=== PATIENT | female | born 2000 | race American Indian/Alaskan Native ===

== ENCOUNTER 2024-10-16 18:20 | Emergency (ER) | payer MEDICAID, SELFPAY ==
[2024-10-16 18:23] VITALS: PULSE 134; RESP 18; O2SAT 100; BMI 22.4
[2024-10-16 18:26] VITALS: BP 139/91; PULSE 130; RESP 18; TEMP 36.6; O2SAT 99
--- NOTE | 2024-10-16 18:54 | XR_ITS ---
Examination: Foot, right, 3 views Technique: AP, oblique, lateral views foot, 3 views Date and time of exam: October 16, 2024 1936 hours INDICATIONS: Injury to foot today, foot pain FINDINGS: Extensive opacities in the soft tissue plantar surface of foot and calcaneus Large soft tissue defect upper posterior ankle with 4 foreign bodies in the soft tissue, the largest 10 mm No fracture IMPRESSION: Extensive opacities in the soft tissue plantar surface of the foot and calcaneus that appear to be on or near the skin, clinical correlation advised Large laceration upper posterior ankle with at least 4 foreign bodies in the soft tissue
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
[2024-10-16] MEDS: cephALEXin 250 MG CAPSULE 500 MG PO (19:41)
[2024-10-16] MEDS: DIPHTH,PERTUSS(ACELL),TET VAC 0.5 ML SYR- ADULT IMi (19:42)
[2024-10-16 20:50] VITALS: BP 116/67; PULSE 80; RESP 16; TEMP 37; O2SAT 100
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
[2024-10-16] MEDS: LIDOCAINE HCL 1% 20 ML VIAL IM (22:27)
[2024-10-16 22:40] VITALS: BP 125/78; PULSE 66; RESP 15; O2SAT 100
== END 2024-10-16 23:01 | disposition home or self-care (01) ==
PROVIDERS: Emergency Provider Emergency Medicine
DX: S81.811A Laceration without foreign body, right lower leg, initial encounter (principal); S01.81XA Laceration without foreign body of other part of head, initial encounter; Z23 Encounter for immunization; W22.8XXA Striking against or struck by other objects, initial encounter
CPT/HCPCS: 12001; 73630; 90471; 90715; 99283; J3490; A9270

== ENCOUNTER 2024-10-18 19:37 | Emergency (ER) | payer OTHER, SELFPAY ==
[2024-10-18 19:37] VITALS: BMI 22.4
[2024-10-18 19:45] VITALS: BP 125/76; PULSE 98; RESP 18; TEMP 36.9; O2SAT 100
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
== END 2024-10-18 20:56 | disposition home or self-care (01) ==
PROVIDERS: Emergency Provider Emergency Medicine
DX: S81.811D Laceration without foreign body, right lower leg, subsequent encounter (principal); W22.8XXD Striking against or struck by other objects, subsequent encounter
CPT/HCPCS: 99282

== ENCOUNTER 2024-10-27 20:07 | Emergency (ER) | payer OTHER, SELFPAY ==
[2024-10-27 20:19] VITALS: BP 127/77; PULSE 89; RESP 20; TEMP 36.7; O2SAT 99
--- NOTE | 2024-10-27 20:28 | PD.EDWOUND ---
ED Wound/Laceration-RME/HPI General Chief Complaint: Wound Recheck / Suture Removal Stated Complaint: NEED STITCHES REMOVED TO RIGHT ANKLE Time Seen by Provider: 10/27/24 20:23 Arrival date/time: 10/27/24 20:07 24F with history of drug use presents to ED with suture removal for lacs from 10 days ago on R ankle area. Limitations: no limitations Related Data Previous Rx's ?Medication ?Instructions ?Recorded ibuprofen 800 mg tablet 800 mg PO Q8H PRN pain #30 tabs 10/16/24 Allergies Allergy/AdvReac Type Severity Reaction Status Date / Time No Known Allergies Allergy Verified 10/27/24 20:08 Review of Systems Review of Systems Systems Reviewed: All systems reviewed, normal except as documented Constitutional Constitutional: Reports system reviewed and no additional complaints, except as documented, Denies fever(s) and Denies headache(s) ENT Ears, Nose, Mouth, and Throat: Denies disequilibrium and Denies headache(s) Cardiovascular Cardiovascular: Reports system reviewed and no additional complaints, except as documented, Denies chest pain and Denies dyspnea Respiratory Respiratory: Reports system reviewed and no additional complaints, except as documented, Denies cough and Denies dyspnea Gastrointestinal Gastrointestinal: Reports system reviewed and no additional complaints, except as documented, Denies abdominal pain, Denies nausea and Denies vomiting Neurologic Neurologic: Reports system reviewed and no additional complaints, except as documented, Denies confusion, Denies disequilibrium and Denies headache(s) Psychiatric Psychiatric: Denies confusion Past Medical History Past Medical History NEUROLOGIC: Negative Neurological Disorders CARDIAC: Negative Cardiac Disorders or Congestive Heart Failure RESPIRATORY: Negative Chronic Obstructive Pulmonary Disease (COPD) GASTROINTESTINAL: Negative Gastrointestinal Disorders, Hepatitis or Colorectal Cancer GENITOURINARY: Negative Genitourinary Disorders, Renal Disease or Prostate Cancer REPRODUCTIVE: Positive Previous Pregnancies and Syphilis (arpil 2021, treat october 2021.); Negative Breast Cancer, Endometriosis, Pelvic Inflammatory Disease, Testicular Cancer or Uterine Prolapse MUSCULOSKELETAL: Negative Musculoskeletal Disorders or Bone Cancer ENT: Negative Cataracts or Blind ENDOCRINE: Negative Endocrine Disorders, Diabetes Mellitus Type 1 or Diabetes Mellitus Type 2 HEMATOLOGIC: Negative Blood Disorders OTHER HISTORY: Negative Hospitalization, Autoimmune Disease, Down Syndrome, Developmental Delay, Shingles, Falls, Blood Transfusions, Blood Transfusion Reaction, Anesthesia Reactions, Organ Transplant, Chemotherapy, Radiation Therapy, Hyperbaric Therapy, MRSA, VRSA, Vancomycin-Resistant Enterococci, Human Immunodeficiency Virus (HIV), Chicken Pox, Measles, Mumps, Rubella (Taj[place] Measles), Clostridium Difficile, Cancer, Breast Cancer, Cervical Cancer, Colorectal Cancer, Lung Cancer, Ovarian Cancer, Prostate Cancer or Testicular Cancer Family History FAMILY HISTORY: Negative Family Psychiatric Problems, Family Respiratory Disorders, Family Cardiac Disorders, Family Gastrointestinal Problems, Family Cancer, Family Surgery or Family Anesthesia Reaction Surgical History SURGICAL: Negative Endocrine Surgery, Ear Surgery, Abdominal Surgery, Nephrectomy, Joint Replacement, Neurologic Surgery, Section or Organ Transplant Social History SMOKING STATUS: Current some day smoker SECOND HAND EXPOSURE: Yes (fob smokes around mother.) ED Exam General Limitations: Present no limitations General appearance: Present alert and in no apparent distress Head Head exam: Present atraumatic Eye Eye exam: Present normal appearance, PERRL and EOMI ENT ENT exam: Present normal exam, normal oropharynx and mucous membranes moist Neck Neck exam: Present normal inspection, full ROM and trachea midline Chest Chest inspection: Present normal inspection and symmetric chest wall rise Respiratory Respiratory exam: Present normal lung sounds bilaterally Cardiovascular Cardiovascular exam: Present regular rate, normal rhythm and normal heart sounds Abdominal Exam Abdominal exam: Present soft and normal bowel sounds Extremities Exam Extremities exam: Present full ROM Expanded Lower Extremity Exam Ankle exam: Present full ROM and laceration (healing lacs) Back Exam Back exam: Present normal inspection and full ROM Neurological Exam Neurological exam: Present alert, oriented X3 and CN II-XII intact Psychiatric Psychiatric exam: Present normal affect and normal mood Skin Skin exam: Present warm, dry, intact and normal color Course Quality Measures none Vital Signs Vital signs: Vital Signs Temperature 98.1 F 10/27/24 20:19 Pulse Rate 89 10/27/24 20:19 Respiratory Rate 20 10/27/24 20:19 Blood Pressure 127/77 10/27/24 20:19 Pulse Oximetry (%) 99 10/27/24 20:19 Oxygen Delivery Method Room Air 10/27/24 20:19 O2 at 99% on RA and WNLs Wound / Laceration MDM Narrative MDM Narrative:: 24F with history of drug use presents to ED with suture removal for lacs from 10 days ago on R ankle area. Physical exam reveals well-healing lacs on R ankle. There are a total of 2. No redness or tenderness around them. Patient is afebrile, alert, but anxious. 8 sutures removed. Patient data External records reviewed:: [facility] previous records Clinical information provided by:: patient Social determinants that could affect healthcare access:: substance use Patient has the following chronic illnesses:: drug use How is presenting disease/condition affected by chronic disease/condition?: exacerbated by Evaluation data The following diagnostics were reviewed and interpreted by me:: other (specify) (none) Lab and/or radiology exams considered but not ordered:: not ordered Interpretation Summary: n/a Medications / Prescriptions Medications or Prescriptions considered but not ordered:: not ordered Medication administrations:: n/a Consultations Consultation(s) initiated? (list below): No Diagnosis Wound Differential Diagnosis: laceration, abrasion, avulsion of skin and other (encounter for suture removal) Most likely diagnosis given after review of the tests above:: encounter for suture removal Admission Indicated Admission indicated?: not indicated Admission Request Was there a request for admission?: No Disposition Plan Disposition Plan: Discharge Discharge Attestation Discharge Attestation: The patient and all family members were given an opportunity to ask questions and understood the discharge instructions. Discharge instructions specifically effects, indications for sooner follow up or return to the emergency department, and the expected course of current diagnosis. Patient condition: Stable Discharge Plan Plan Patient Disposition: HOME (Self Care) Discharge Disposition comment: Stable Prescriptions/Referrals Prescriptions/Med Rec: No Action ibuprofen 800 mg tablet 800 mg PO Q8H PRN (Reason: pain) Qty: 30 0RF Problem List Clinical Impression: Encounter for removal of sutures Patient/Caregiver Discharge Instructions Education Materials: ED Stitches/Staple Removal No ... Additional Instructions: Please follow-up with PCP within 24-48 hours and return immediately if symptoms worsen. Print Language: Welsh Stand Alone Forms: Patient Portal Info Letter CHRISTINE/HOWARD Supervising Physician JOSE Supervising Physician: Dr. Mason
== END 2024-10-27 20:40 | disposition home or self-care (01) ==
LOC: SERX 20:34
PROVIDERS: Emergency Provider Emergency Medicine
DX: Z48.02 Encounter for removal of sutures (principal)
CPT/HCPCS: 99282

== ENCOUNTER 2024-12-19 14:35 | Emergency (ER) | payer OTHER, SELFPAY ==
[2024-12-19 14:36] VITALS: PULSE 80; RESP 16; O2SAT 98
[2024-12-19 14:40] VITALS: BP 105/68; PULSE 70; RESP 16; TEMP 37; O2SAT 99
[2024-12-19 15:31] VITALS: BP 117/77; PULSE 64; RESP 19; TEMP 37.2; O2SAT 98
--- NOTE | 2024-12-19 16:50 | PD.EDRME ---
Rapid Medical Screening Exam RME Arrival date/time: 12/19/24 14:35 This is a case of 24-year-old female with history of SYPHILIS in the past came in in the emergency room requesting for a syphilis test patient has recently had unprotected sex and wanted to be tested for syphilis patient denies any symptoms Chief Complaint: Urogenital-Female Time Seen by Provider: 12/19/24 14:42 Vital signs: Vital Signs Temperature 98.6 F 12/19/24 14:40 Pulse Rate 70 12/19/24 14:40 Respiratory Rate 16 12/19/24 14:40 Blood Pressure 105/68 12/19/24 14:40 Pulse Oximetry (%) 99 12/19/24 14:40 Oxygen Delivery Method Room Air 12/19/24 14:40
[2024-12-19 17:04] LABS: MHATP/TP-PA* See Sep Rpt; Syphilis Reactive (Nonreactive)
--- NOTE | 2024-12-19 17:22 | EDNOTE_ITS ---
ED Female Urogenital RME/HPI General Chief complaint: Urogenital-Female Stated complaint: THERE'S A BUBBLE ON MY LIP REQUEST STD SCREENING Time Seen by Provider: 12/19/24 14:42 Arrival date/time: 12/19/24 14:35 Limitations: no limitations RME / HPI RME / HPI Narrative: 12/19/24 14:35 This is a case of 24-year-old female with history of SYPHILIS in the past came in in the emergency room requesting for a syphilis test patient has recently had unprotected sex and wanted to be tested for syphilis patient denies any symptoms Related Data Previous Rx's ?Medication ?Instructions ?Recorded ibuprofen 800 mg tablet 800 mg PO Q8H PRN pain #30 t abs 10/16/24 Allergies Allergy/AdvReac Type Severity Reaction Status Date / Time No Known Allergies Allergy Verified 12/19/24 14:39 Review of Systems Review of Systems Systems Reviewed: All systems reviewed, normal except as documented Constitutional Constitutional: Reports system reviewed and no additional complaints, except as documented Cardiovascular Cardiovascular: Reports system reviewed and no additional complaints, except as documented and Reports as per HPI Respiratory Respiratory: Reports system reviewed and no additional complaints, except as documented and Reports as per HPI Gastrointestinal Gastrointestinal: Reports system reviewed and no additional complaints, except as documented and Reports as per HPI Musculoskeletal Musculoskeletal: Reports system reviewed and no additional complaints, except as documented and Reports as per HPI Neurologic Neurologic: Reports system reviewed and no additional complaints, except as documented and Reports as per HPI Past Medical History Past Medical History NEUROLOGIC: Negative Neurological Disorders CARDIAC: Negative Cardiac Disorders or Congestive Heart Failure RESPIRATORY: Negative Chronic Obstructive Pulmonary Disease (COPD) GASTROINTESTINAL: Negative Gastrointestinal Disorders, Hepatitis or Colorectal Cancer GENITOURINARY: Negative Genitourinary Disorders, Renal Disease or Prostate Cancer REPRODUCTIVE: Positive Previous Pregnancies and Syphilis (arpil 2021, treat october 2021.); Negative Breast Cancer, Endometriosis, Pelvic Inflammatory Disease, Testicular Cancer or Uterine Prolapse MUSCULOSKELETAL: Negative Musculoskeletal Disorders or Bone Cancer ENT: Negative Cataracts or Blind ENDOCRINE: Negative Endocrine Disorders, Diabetes Mellitus Type 1 or Diabetes Mellitus Type 2 HEMATOLOGIC: Negative Blood Disorders OTHER HISTORY: Negative Hospitalization, Autoimmune Disease, Down Syndrome, Developmental Delay, Shingles, Falls, Blood Transfusions, Blood Transfusion Reaction, Anesthesia Reactions, Organ Transplant, Chemotherapy, Radiation Therapy, Hyperbaric Therapy, MRSA, VRSA, Vancomycin-Resistant Enterococci, Human Immunodeficiency Virus (HIV), Chicken Pox, Measles, Mumps, Rubella ([place] Measles), Clostridium Difficile, Cancer, Breast Cancer, Cervical Cancer, Colorectal Cancer, Lung Cancer, Ovarian Cancer, Prostate Cancer or Testicular Cancer Family History FAMILY HISTORY: Negative Family Psychiatric Problems, Family Respiratory Disorders, Family Cardiac Disorders, Family Gastrointestinal Problems, Family Cancer, Family Surgery or Family Anesthesia Reaction Surgical History SURGICAL: Negative Endocrine Surgery, Ear Surgery, Abdominal Surgery, Nephrectomy, Joint Replacement, Neurologic Surgery, Section or Organ Transplant Social History SMOKING STATUS: Light (< 1 pack/day) SECOND HAND EXPOSURE: Yes (fob smokes around mother.) ED Exam General Limitations: Present no limitations General appearance: Present alert, in no apparent distress and other (Patient is awake alert oriented not in distress not toxic looking well-hydrated well- nourished) Head Head exam: Present atraumatic Eye Eye exam: Present normal appearance, PERRL and EOMI ENT ENT exam: Present normal exam, normal oropharynx and mucous membranes moist Neck Neck exam: Present normal inspection, full ROM and trachea midline Chest Chest inspection: Present normal inspection and symmetric chest wall rise Respiratory Respiratory exam: Present normal lung sounds bilaterally; Absent respiratory distress, wheezes, stridor, accessory muscle use or prolonged expiratory phase Cardiovascular Cardiovascular exam: Present regular rate, normal rhythm and normal heart sounds; Absent bradycardia, tachycardia, systolic murmur or diastolic murmur Abdominal Exam Abdominal exam: Present soft and normal bowel sounds; Absent distention, tenderness, guarding, rebound, rigidity, diminished bowel sounds, hyperactive bowel sounds, hypoactive bowel sounds, organomegaly, Soto's sign, Rovsing's sign or tenderness at McBurney's Point Extremities Exam Extremities exam: Present normal inspection and full ROM Back Exam Back exam: Present normal inspection and full ROM Neurological Exam Neurological exam: Present alert, oriented X3, CN II-XII intact, normal gait and reflexes normal; Absent motor sensory deficit Psychiatric Psychiatric exam: Present normal affect and normal mood Skin Skin exam: Present warm, dry, intact and normal color Course Quality Measures none Orders Category Date Time Status MHATP/TP-PA* Stat Lab 12/19/24 15:45 Received Syphilis Stat Lab 12/19/24 15:45 Completed PEN G ALFREDO (Bicillin LA) [Bicillin La Inj] Med 12/19/24 17:20 Once 2.4 mmu IM X1 ONE Vital Signs Vital signs: Vital Signs Temperature 98.6 F 12/19/24 14:40 Pulse Rate 70 12/19/24 14:40 Respiratory Rate 16 12/19/24 14:40 Blood Pressure 105/68 12/19/24 14:40 Pulse Oximetry (%) 99 12/19/24 14:40 Oxygen Delivery Method Room Air 12/19/24 14:40 Oxygen saturation is 99% in room air normal Urogenital - Female MDM Narrative MDM Narrative:: This is a case of 24-year-old female with history of SYPHILIS in the past came in in the emergency room requesting for a syphilis test patient has recently had unprotected sex and wanted to be tested for syphilis patient denies any symptoms physical examination patient is awake alert oriented not in distress nontoxic looking abdominal exam is benign nonsurgical no guarding no rebound no rigidity no tenderness the rest of the physical examination neurological exam is normal and unremarkable patient syphilis exam is positive reactive thus patient was given penicillin G 2.4 units per CDC protocol she was also advised to go to his primary care physician in December for an January 03 for his 2nd and 3rd dose of penicillin safe sex is advised for any worsening symptoms or any emergent concern return to the emergency room immediately or call 911 Patient was discharged with comfortable condition walking with stable gait. Patient verbalized no further complains explained diagnosis and answered patient question. Patient is comfortable with the proposed management plan including the need to follow up with his/her primary care physician and any specialist if applicable Discussed patient for any urgent condition or worsening sx, He/She needed to go to emergency room immediately or call 911. Patient acknowledge the responsibility to follow up as instructed and to monitor her/his symptoms. For any persistence of the symptoms for more than 3-5 days return precaution advised. Discussed the result of the test and was given printed discharge instruction Patient data External records reviewed:: [facility] previous records Clinical information provided by:: patient Social determinants that could affect healthcare access:: none Patient has the following chronic illnesses:: None How is presenting disease/condition affected by chronic disease/condition?: no chronic disease Evaluation data The following diagnostics were reviewed and interpreted by me:: lab results Lab and/or radiology exams considered but not ordered:: Reviewed Interpretation Summary: Reviewed Medications / Prescriptions Medications or Prescriptions considered but not ordered:: Given Medication administrations:: Medication Administration History Penicillin G Benzathine (Pen G Alfredo (Bicillin La) 1.2 Mmu/2 Ml Syrg) 2.4 mmu IM X1 ONE Stop: 12/19/24 17:21 Given Consultations Consultation(s) initiated? (list below): No Diagnosis Urogenital Female Differential Diagnosis: other (SYPHILLIS) Most likely diagnosis given after review of the tests above:: SYPHILLIS Admission Indicated Admission indicated?: not indicated Explain why admission is indicated or not indicated:: Not indicated Admission Request Was there a request for admission?: No Admission Attestation Admission request attestation: Not indicated Disposition Plan Disposition Plan: Discharge Discharge Attestation Discharge Attestation: The patient and all family members were given an opportunity to ask questions and understood the discharge instructions. Discharge instructions specifically effects, indications for sooner follow up or return to the emergency department, and the expected course of current diagnosis. Patient condition: Stable Discharge Plan Plan Patient Disposition: HOME (Self Care) Patient condition on transfer: Stable Prescriptions/Referrals Prescriptions/Med Rec: No Action ibuprofen 800 mg tablet 800 mg PO Q8H PRN (Reason: pain) Qty: 30 0RF Problem List Clinical Impression: Syphilis Patient/Caregiver Discharge Instructions Education Materials: Understanding STIs, Syphilis Additional Instructions: Follow-up with your primary care physician in 2 days for reevaluation it is very important to return to your primary care physician on December 27, 2024 and January 03, 2025 for your 2nd and 3rd penicillin injection for your syphilis for any symptoms or any emergent concern return to the emergency room immediately or call 911 safe sex is advised Print Language: Faroese Stand Alone Forms: Justina Award Info., Patient Portal Info Letter CHRISTINE/HOWARD Supervising Physician CHRISTINE/HOWARD Supervising Physician: DR CAMPOVERDE
[2024-12-19] MEDS: PEN G BENZ (Bicillin LA) 1.2 MMU/2 ML SYRG IM ×2 (17:54)
== END 2024-12-19 18:07 | disposition home or self-care (01) ==
LOC: SERX 17:28
PROVIDERS: Nurse Practitioner Family; Emergency Provider Emergency Medicine
DX: A53.9 Syphilis, unspecified (principal)
CPT/HCPCS: 36415; 86780; 96372; 99283; J0561

== ENCOUNTER 2024-12-27 18:19 | Emergency (ER) | payer OTHER, SELFPAY ==
[2024-12-27 18:19] VITALS: BMI 25.0
[2024-12-27 19:02] VITALS: BP 109/68; PULSE 89; RESP 19; TEMP 37.1; O2SAT 99
--- NOTE | 2024-12-27 20:52 | EDNOTE_ITS ---
ED General RME/HPI General Chief complaint: General Adult/Misc Complain Stated complaint: CAME FOR 2ND PCN SHOT Time Seen by Provider: 12/27/24 19:40 Arrival date/time: 12/27/24 18:19 RME / HPI RME / HPI narrative: 20-year-old female presents to the ED for her second shot of pen G for diagnosis of syphilis. She denies any side effects from the previous injection. She denies any current symptoms. Related Data Previous Rx's ?Medication ?Instructions ?Recorded ibuprofen 800 mg tablet 800 mg PO Q8H PRN pain #30 t abs 10/16/24 Allergies Allergy/AdvReac Type Severity Reaction Status Date / Time No Known Allergies Allergy Verified 12/27/24 18:21 Review of Systems Review of Systems Systems Reviewed: All systems reviewed, normal except as documented Past Medical History Past Medical History NEUROLOGIC: Negative Neurological Disorders CARDIAC: Negative Cardiac Disorders or Congestive Heart Failure RESPIRATORY: Negative Chronic Obstructive Pulmonary Disease (COPD) GASTROINTESTINAL: Negative Gastrointestinal Disorders, Hepatitis or Colorectal Cancer GENITOURINARY: Negative Genitourinary Disorders, Renal Disease or Prostate Cancer REPRODUCTIVE: Positive Previous Pregnancies and Syphilis (arpil 2021, treat october 2021.); Negative Breast Cancer, Endometriosis, Pelvic Inflammatory Disease, Testicular Cancer or Uterine Prolapse MUSCULOSKELETAL: Negative Musculoskeletal Disorders or Bone Cancer ENT: Negative Cataracts or Blind ENDOCRINE: Negative Endocrine Disorders, Diabetes Mellitus Type 1 or Diabetes Mellitus Type 2 HEMATOLOGIC: Negative Blood Disorders OTHER HISTORY: Negative Hospitalization, Autoimmune Disease, Down Syndrome, Developmental Delay, Shingles, Falls, Blood Transfusions, Blood Transfusion Reaction, Anesthesia Reactions, Organ Transplant, Chemotherapy, Radiation Therapy, Hyperbaric Therapy, MRSA, VRSA, Vancomycin-Resistant Enterococci, Human Immunodeficiency Virus (HIV), Chicken Pox, Measles, Mumps, Rubella ([place]ic Measles), Clostridium Difficile, Cancer, Breast Cancer, Cervical Cancer, Colorectal Cancer, Lung Cancer, Ovarian Cancer, Prostate Cancer or Testicular Cancer Family History FAMILY HISTORY: Negative Family Psychiatric Problems, Family Respiratory Disorders, Family Cardiac Disorders, Family Gastrointestinal Problems, Family Cancer, Family Surgery or Family Anesthesia Reaction Surgical History SURGICAL: Negative Endocrine Surgery, Ear Surgery, Abdominal Surgery, Nephrectomy, Joint Replacement, Neurologic Surgery, Section or Organ Transplant Social History SMOKING STATUS: Never smoker SECOND HAND EXPOSURE: Yes (fob smokes around mother.) ED Exam Narrative Physical exam: A&O, afebrile and non-toxic appearing 24-year-old female, no acute distress. Lungs are clear, RRR. Moves all extremities well. Course Course Course Narrative: Patient was given Bicillin LA 2.4 mmu IM prior to discharge. Quality Measures none Orders Category Date Time Status PEN Sheridan SÁNCHEZ (Bicillin LA) [Bicillin La Inj] Med 12/27/24 19:52 Discontinued 2.4 mmu IM X1 ONE Vital Signs Vital signs: Vital Signs Temperature 98.8 F 12/27/24 19:02 Pulse Rate 89 12/27/24 19:02 Respiratory Rate 19 12/27/24 19:02 Blood Pressure 109/68 12/27/24 19:02 Pulse Oximetry (%) 99 12/27/24 19:02 Oxygen Delivery Method Room Air 12/27/24 19:02 Discharge Plan Plan Patient Disposition: HOME (Self Care) Discharge Disposition comment: Stable Prescriptions/Referrals Prescriptions/Med Rec: No Action ibuprofen 800 mg tablet 800 mg PO Q8H PRN (Reason: pain) Qty: 30 0RF Referrals: No Primary/Family,Physician [Primary Care Provider] - In 1 week Problem List Clinical Impression: Syphilis Patient/Caregiver Discharge Instructions Education Materials: Understanding STIs, Syphilis Additional Instructions: Return in 1 week for your third and final injection. Do not have sexual intercourse without condoms. Your partner/partners will need to be treated as well. Follow-up with your primary care physician in 24 to 48 hours. Return to the ED for any new or worsening symptoms. Print Language: Kinyarwanda Stand Alone Forms: Justina Award Info., Patient Portal Info Letter PA/THERAPEUTIC RECREATION LEADER Supervising Physician PA/THERAPEUTIC RECREATION LEADER Supervising Physician: Dr Rivera [facility] Narrative [facility] hospital course: Symptoms, exam and diagnostic studies are consistent with: Syphilis Patient was discharged home in stable condition. Patient/family advised to follow-up with their PCP in 24-48 hours. Encouraged to return to the ED for any new or worsening symptoms. Procedures done or offered: Bicillin LA 2.4 mmu given Clinical Information Provided by patient Medical Records Reviewed [facility] Syphilis, previously given Bicillin LA 2.4 mmu Meds/Rx Considered, not Ordered None Describe details: N/A Labs/Rad/Tests considered, not Ordered None Describe details: N/A Chronic Illness/Social Conditions which may negatively complicate care or outcome(s)-explain: None or not applicable EKG EKG not done EKG Interpretation narrative: N/A Lab Interpretation Labs: none Lab(s) interpretation(s): None today. Imaging Imaging interpretation: none Radiology reports / interpretation(s): N/A Medication Administration(s) Medication Administration History Discontinued Medications Penicillin G Benzathine (Pen G Alfredo (Bicillin La) 1.2 Mmu/2 Ml Syrg) 2.4 mmu IM X1 ONE Stop: 12/27/24 19:53 As noted above Diagnosis Differential diagnosis: Syphilis, gonorrhea, chlamydia Most likely dx, and/or detailed dx discussion: Syphilis Dispositon Disposition: Discharge Home Disposition comments: Patient is stable for discharge
[2024-12-27] MEDS: PEN G BENZ (Bicillin LA) 1.2 MMU/2 ML SYRG 2.4 MMU IM (21:08)
== END 2024-12-27 21:14 | disposition home or self-care (01) ==
PROVIDERS: Emergency Provider Emergency Medicine
DX: A53.9 Syphilis, unspecified (principal)
CPT/HCPCS: 96372; 99282; J0561

== ENCOUNTER 2024-12-29 18:39 | Emergency (ER) | payer OTHER, SELFPAY ==
[2024-12-29 18:53] VITALS: BP 120/68; PULSE 66; RESP 16; TEMP 37.1; O2SAT 99; BMI 23.2
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
== END 2024-12-29 19:09 | disposition home or self-care (01) ==
LOC: SERX 20:09
PROVIDERS: Emergency Provider Emergency Medicine
DX: A53.9 Syphilis, unspecified (principal)
CPT/HCPCS: 99282

== ENCOUNTER 2025-01-03 19:22 | Emergency (ER) | payer OTHER, SELFPAY ==
[2025-01-03 19:23] VITALS: BMI 23.3
[2025-01-03 20:14] VITALS: BP 116/71; PULSE 91; RESP 20; TEMP 36.9; O2SAT 100
--- NOTE | 2025-01-03 20:25 | PD.EDADULT ---
ED General RME/HPI General Chief complaint: General Adult/Misc Complain Stated complaint: HERE FOR PCN SHOT Time Seen by Provider: 01/03/25 20:16 Arrival date/time: 01/03/25 19:22 RME / HPI RME / HPI narrative: 24-year-old female presents to the ED for her third penicillin shot for a diagnosis of syphilis. She has been coming weekly, every Friday. She denies any fever, chills, nausea or vomiting, vaginal discharge. It is unknown if her partner has been treated yet. She was advised to not be with that person until he is fully treated Related Data Previous Rx's ?Medication ?Instructions ?Recorded ibuprofen 800 mg tablet 800 mg PO Q8H PRN pain #30 tabs 10/16/24 Allergies Allergy/AdvReac Type Severity Reaction Status Date / Time No Known Allergies Allergy Verified 01/03/25 19:22 Review of Systems Review of Systems Systems Reviewed: All systems reviewed, normal except as documented Past Medical History Past Medical History NEUROLOGIC: Negative Neurological Disorders CARDIAC: Negative Cardiac Disorders or Congestive Heart Failure RESPIRATORY: Negative Chronic Obstructive Pulmonary Disease (COPD) GASTROINTESTINAL: Negative Gastrointestinal Disorders, Hepatitis or Colorectal Cancer GENITOURINARY: Negative Genitourinary Disorders, Renal Disease or Prostate Cancer REPRODUCTIVE: Positive Previous Pregnancies and Syphilis (arpil 2021, treat october 2021.); Negative Breast Cancer, Endometriosis, Pelvic Inflammatory Disease, Testicular Cancer or Uterine Prolapse MUSCULOSKELETAL: Negative Musculoskeletal Disorders or Bone Cancer ENT: Negative Cataracts or Blind ENDOCRINE: Negative Endocrine Disorders, Diabetes Mellitus Type 1 or Diabetes Mellitus Type 2 HEMATOLOGIC: Negative Blood Disorders OTHER HISTORY: Negative Hospitalization, Autoimmune Disease, Down Syndrome, Developmental Delay, Shingles, Falls, Blood Transfusions, Blood Transfusion Reaction, Anesthesia Reactions, Organ Transplant, Chemotherapy, Radiation Therapy, Hyperbaric Therapy, MRSA, VRSA, Vancomycin-Resistant Enterococci, Human Immunodeficiency Virus (HIV), Chicken Pox, Measles, Mumps, Rubella (Armenian Measles), Clostridium Difficile, Cancer, Breast Cancer, Cervical Cancer, Colorectal Cancer, Lung Cancer, Ovarian Cancer, Prostate Cancer or Testicular Cancer Family History FAMILY HISTORY: Negative Family Psychiatric Problems, Family Respiratory Disorders, Family Cardiac Disorders, Family Gastrointestinal Problems, Family Cancer, Family Surgery or Family Anesthesia Reaction Surgical History SURGICAL: Negative Endocrine Surgery, Ear Surgery, Abdominal Surgery, Nephrectomy, Joint Replacement, Neurologic Surgery, Section or Organ Transplant Social History SMOKING STATUS: Never smoker SECOND HAND EXPOSURE: Yes (fob smokes around mother.) ED Exam Narrative Physical exam: A&O, afebrile and non-toxic appearing 24-year-old female, no acute distress. Lung sounds are clear, RRR, Abdomen is soft, nontender, and non-distended. Moves all extremities well. Course Course Course Narrative: Patient was given pen G 2.4 mmu IM for her third and final injection for a diagnosis of syphillis. Quality Measures none Vital Signs Vital signs: Vital Signs Temperature 98.5 F 01/03/25 20:14 Pulse Rate 91 01/03/25 20:14 Respiratory Rate 20 01/03/25 20:14 Blood Pressure 116/71 01/03/25 20:14 Pulse Oximetry (%) 100 01/03/25 20:14 Oxygen Delivery Method Room Air 01/03/25 20:14 Discharge Plan Plan Patient Disposition: HOME (Self Care) Discharge Disposition comment: Stable Prescriptions/Referrals Prescriptions/Med Rec: No Action ibuprofen 800 mg tablet 800 mg PO Q8H PRN (Reason: pain) Qty: 30 0RF Problem List Clinical Impression: Syphilis Patient/Caregiver Discharge Instructions Education Materials: What Are Sexually Transmitted ..., Syphilis Additional Instructions: Do not have sexual intercourse without condoms. Your partner/partners will need to be treated as well. Follow-up with your primary care physician in 24 to 48 hours. Return to the ED for any new or worsening symptoms. Print Language: Macanese Stand Alone Forms: Justina Award Info., Patient Portal Info Letter PA/EPIC APPLICATION COORDINATOR Supervising Physician PA/EPIC APPLICATION COORDINATOR Supervising Physician: Dr. Zambrano [facility] Narrative [facility] hospital course: Symptoms, exam and diagnostic studies are consistent with: Syphilis. Patient was discharged home in stable condition. Patient/family advised to follow-up with their PCP in 24-48 hours. Encouraged to return to the ED for any new or worsening symptoms. Procedures done or offered: Pen G 2.4mmu Clinical Information Provided by patient Medical Records Reviewed [facility] 1st and 2nd shots were given on the 2 previous Mondays. Meds/Rx Considered, not Ordered None Describe details: N/A Labs/Rad/Tests considered, not Ordered None Describe details: N/A Chronic Illness/Social Conditions which may negatively complicate care or outcome(s)-explain: None or not applicable EKG EKG not done EKG Interpretation narrative: N/A Lab Interpretation Labs: none Lab(s) interpretation(s): N/A Imaging Imaging interpretation: none Provider imaging interpretation(s): N/A Radiology reports / interpretation(s): N/A Medication Administration(s) Pen G 2.4mmu IM Diagnosis Differential diagnosis: STI, syphilis, neurosyphilis, chancre Most likely dx, and/or detailed dx discussion: Syphilis Dispositon Disposition: Discharge Home Disposition comments: Patient is stable for discharge
[2025-01-03] MEDS: PEN G BENZ (Bicillin LA) 2.4 MMU/4 ML SYRG IM (20:55)
== END 2025-01-03 21:02 | disposition home or self-care (01) ==
PROVIDERS: Emergency Provider Emergency Medicine
DX: A53.9 Syphilis, unspecified (principal)
CPT/HCPCS: 96372; 99283; J0561

== ENCOUNTER 2025-01-09 18:40 | Emergency (ER) | payer OTHER, SELFPAY ==
[2025-01-09 18:40] VITALS: BMI 25.0
[2025-01-09 18:49] VITALS: BP 112/68; PULSE 68; RESP 18; TEMP 36.8; O2SAT 100
[2025-01-09] MEDS: PEN G BENZ (Bicillin LA) 1.2 MMU/2 ML SYRG 2.4 MMU IM (19:35)
--- NOTE | 2025-01-09 20:07 | PD.EDADULT ---
ED General RME/HPI General Chief complaint: General Adult/Misc Complain Stated complaint: 3RD PENICILLIN SHOT Time Seen by Provider: 01/09/25 18:44 Arrival date/time: 01/09/25 18:40 This is a case of 24-year-old female with no medical history came into the emergency room for his third penicillin injection for his syphilis patient denies any symptoms denies any vaginal discharge irritation or pain no urinary symptoms Limitations: no limitations Related Data Previous Rx's ?Medication ?Instructions ?Recorded ibuprofen 800 mg tablet 800 mg PO Q8H PRN pain #30 tabs 10/16/24 Allergies Allergy/AdvReac Type Severity Reaction Status Date / Time No Known Allergies Allergy Verified 01/09/25 18:42 Review of Systems Review of Systems Systems Reviewed: All systems reviewed, normal except as documented Constitutional Constitutional: Reports system reviewed and no additional complaints, except as documented and Reports as per HPI Cardiovascular Cardiovascular: Reports system reviewed and no additional complaints, except as documented and Reports as per HPI Respiratory Respiratory: Reports system reviewed and no additional complaints, except as documented and Reports as per HPI Gastrointestinal Gastrointestinal: Reports system reviewed and no additional complaints, except as documented and Reports as per HPI Neurologic Neurologic: Reports system reviewed and no additional complaints, except as documented and Reports as per HPI Past Medical History Past Medical History NEUROLOGIC: Negative Neurological Disorders CARDIAC: Negative Cardiac Disorders or Congestive Heart Failure RESPIRATORY: Negative Chronic Obstructive Pulmonary Disease (COPD) GASTROINTESTINAL: Negative Gastrointestinal Disorders, Hepatitis or Colorectal Cancer GENITOURINARY: Negative Genitourinary Disorders, Renal Disease or Prostate Cancer REPRODUCTIVE: Positive Previous Pregnancies and Syphilis (arpil 2021, treat october 2021.); Negative Breast Cancer, Endometriosis, Pelvic Inflammatory Disease, Testicular Cancer or Uterine Prolapse MUSCULOSKELETAL: Negative Musculoskeletal Disorders or Bone Cancer ENT: Negative Cataracts or Blind ENDOCRINE: Negative Endocrine Disorders, Diabetes Mellitus Type 1 or Diabetes Mellitus Type 2 HEMATOLOGIC: Negative Blood Disorders OTHER HISTORY: Negative Hospitalization, Autoimmune Disease, Down Syndrome, Developmental Delay, Shingles, Falls, Blood Transfusions, Blood Transfusion Reaction, Anesthesia Reactions, Organ Transplant, Chemotherapy, Radiation Therapy, Hyperbaric Therapy, MRSA, VRSA, Vancomycin-Resistant Enterococci, Human Immunodeficiency Virus (HIV), Chicken Pox, Measles, Mumps, Rubella (Telugu Measles), Clostridium Difficile, Cancer, Breast Cancer, Cervical Cancer, Colorectal Cancer, Lung Cancer, Ovarian Cancer, Prostate Cancer or Testicular Cancer Family History FAMILY HISTORY: Negative Family Psychiatric Problems, Family Respiratory Disorders, Family Cardiac Disorders, Family Gastrointestinal Problems, Family Cancer, Family Surgery or Family Anesthesia Reaction Surgical History SURGICAL: Negative Endocrine Surgery, Ear Surgery, Abdominal Surgery, Nephrectomy, Joint Replacement, Neurologic Surgery, Section or Organ Transplant Social History SMOKING STATUS: Never smoker SECOND HAND EXPOSURE: Yes (fob smokes around mother.) ED Exam General Limitations: Present no limitations General appearance: Present alert, in no apparent distress and other (Awake alert oriented not in distress nontoxic looking well-hydrated well-nourished) Head Head exam: Present atraumatic, normocephalic and normal inspection Eye Eye exam: Present normal appearance, PERRL and EOMI ENT ENT exam: Present normal exam, normal oropharynx and mucous membranes moist Neck Neck exam: Present normal inspection, full ROM and trachea midline Chest Chest inspection: Present normal inspection and symmetric chest wall rise Respiratory Respiratory exam: Present normal lung sounds bilaterally; Absent respiratory distress, wheezes, stridor, accessory muscle use or prolonged expiratory phase Cardiovascular Cardiovascular exam: Present regular rate, normal rhythm and normal heart sounds; Absent bradycardia, tachycardia, irregular rhythm or systolic murmur Abdominal Exam Abdominal exam: Present soft and normal bowel sounds; Absent distention, tenderness, guarding, rebound, rigidity, diminished bowel sounds, hyperactive bowel sounds, hypoactive bowel sounds, organomegaly, trauma, psoas sign, obturator sign, Soto's sign, Rovsing's sign or tenderness at McBurney's Point Extremities Exam Extremities exam: Present normal inspection and full ROM Back Exam Back exam: Present normal inspection and full ROM Neurological Exam Neurological exam: Present alert, oriented X3, CN II-XII intact and normal gait; Absent motor sensory deficit or reflexes normal Psychiatric Psychiatric exam: Present normal affect and normal mood Skin Skin exam: Present warm, dry, intact and normal color Course Quality Measures none Orders Category Date Time Status PEN G PRINCESS (Bicillin LA) [Bicillin La Inj] Med 01/09/25 18:50 Discontinued 2.4 mmu IM X1 ONE Vital Signs Vital signs: Vital Signs Temperature 98.3 F 01/09/25 18:49 Pulse Rate 68 01/09/25 18:49 Respiratory Rate 18 01/09/25 18:49 Blood Pressure 112/68 01/09/25 18:49 Pulse Oximetry (%) 100 08/17/25 18:49 Oxygen Delivery Method Room Air 01/09/25 18:49 Patient is afebrile not tachycardic not tachypneic BP stable not hypoxic oxygen saturation in room air 100% normal Discharge Plan Plan Patient Disposition: HOME (Self Care) Patient condition on transfer: Stable Prescriptions/Referrals Prescriptions/Med Rec: No Action ibuprofen 800 mg tablet 800 mg PO Q8H PRN (Reason: pain) Qty: 30 0RF Problem List Clinical Impression: Syphilis Patient/Caregiver Discharge Instructions Education Materials: What Are Sexually Transmitted ..., Understanding STIs, Syphilis Additional Instructions: Follow-up with your primary care physician in 2 days for evaluation for any recurrence of the symptoms worsening return to the emergency room immediately or call 911 safe sex is advised Print Language: Italian Stand Alone Forms: Justina Award Info., Patient Portal Info Letter PA/HOWARD Supervising Physician PA/HOWARD Supervising Physician: DR CHOE [facility] Narrative [facility] hospital course: This is a case of 24-year-old female with no medical history came into the emergency room for his third penicillin injection for his syphilis patient denies any symptoms denies any vaginal discharge irritation or pain no urinary symptoms physical examination patient is normal awake alert oriented not in distress nontoxic looking abdominal exam is benign nonsurgical no guarding no rebound no rigidity pelvic exam deferred patient is not comfortable patient was given a third dose of penicillin 2.4 mg IM per CDC protocol STD treatment was also discussed with the patient safe sex is also discussed patient will follow-up with PCP in 2 days for evaluation and for any emergent concern she will return to the emergency room immediately or call 911 Patient was discharged with comfortable condition walking with stable gait. Patient verbalized no further complains explained diagnosis and answered patient question. Patient is comfortable with the proposed management plan including the need to follow up with his/her primary care physician and any specialist if applicable Discussed patient for any urgent condition or worsening sx, He/She needed to go to emergency room immediately or call 911. Patient acknowledge the responsibility to follow up as instructed and to monitor her/his symptoms. For any persistence of the symptoms for more than 3-5 days return precaution advised. Discussed the result of the test and was given printed discharge instruction Clinical Information Provided by patient Medical Records Reviewed [facility] Meds/Rx Considered, not Ordered Describe details: Given Labs/Rad/Tests considered, not Ordered None Chronic Illness/Social Conditions which may negatively complicate care or outcome(s)-explain: None or not applicable EKG EKG not done Lab Interpretation Labs: none Imaging Imaging interpretation: none Medication Administration(s) Medication Administration History Discontinued Medications Penicillin G Benzathine (Pen G Princess (Bicillin La) 1.2 Mmu/2 Ml Syrg) 2.4 mmu IM X1 ONE Stop: 01/09/25 18:51 Last Admin: 01/09/25 19:35 Dose: 2.4 mmu Documented By: BD Comments: left and right gluteus max Given Diagnosis Differential diagnosis: Syphilis Differential dx and/or dx ruled out: Syphilis Most likely dx, and/or detailed dx discussion: Syphilis Dispositon Disposition: Discharge Home
== END 2025-01-09 19:41 | disposition home or self-care (01) ==
PROVIDERS: Emergency Provider Family Medicine
DX: A53.9 Syphilis, unspecified (principal)
CPT/HCPCS: 96372; 99282; J0561

== ENCOUNTER 2025-03-28 18:46 | Emergency (ER) | payer OTHER, SELFPAY ==
[2025-03-28 19:05] VITALS: BP 113/54; PULSE 66; RESP 16; TEMP 37; O2SAT 98; BMI 25.0
--- NOTE | 2025-03-28 19:05 | PD.EDSKIN ---
ED Skin Abcess FB-RME/HPI General Chief complaint: General Adult/Misc Complain Stated complaint: ORAL PROBLEMS; WANTS PCN SHOT Time Seen by Provider: 03/28/25 18:53 Arrival date/time: 03/28/25 18:46 This is a case of 24-year-old female with no medical history came into the emergency room due to painful lump on the lower inner lip for 3 days worsening of the symptoms this patient decided to sought consult here in the emergency room Limitations: no limitations Related Data Previous Rx's ?Medication ?Instructions ?Recorded ibuprofen 800 mg tablet 800 mg PO Q8H PRN pain #30 tabs 10/16/24 ibuprofen 800 mg tablet 800 mg PO Q8H PRN pain #20 tabs 03/28/25 sulfamethoxazole 800 1 tab PO Q12H #20 tabs 03/28/25 mg-trimethoprim 160 mg tablet (Bactrim DS) Allergies Allergy/AdvReac Type Severity Reaction Status Date / Time No Known Allergies Allergy Verified 03/28/25 18:48 Review of Systems Review of Systems Systems Reviewed: All systems reviewed, normal except as documented Constitutional Constitutional: Reports system reviewed and no additional complaints, except as documented and Reports as per HPI ENT Ears, Nose, Mouth, and Throat: Reports system reviewed and no additional complaints, except as documented and Reports as per HPI Cardiovascular Cardiovascular: Reports system reviewed and no additional complaints, except as documented and Reports as per HPI Respiratory Respiratory: Reports system reviewed and no additional complaints, except as documented and Reports as per HPI Gastrointestinal Gastrointestinal: Reports system reviewed and no additional complaints, except as documented and Reports as per HPI Musculoskeletal Musculoskeletal: Reports system reviewed and no additional complaints, except as documented and Reports as per HPI Integumentary/Breasts Skin/Breast: Reports system reviewed and no additional complaints, except as documented and Reports as per HPI Neurologic Neurologic: Reports system reviewed and no additional complaints, except as documented and Reports as per HPI Past Medical History Past Medical History NEUROLOGIC: Negative Neurological Disorders CARDIAC: Negative Cardiac Disorders or Congestive Heart Failure RESPIRATORY: Negative Chronic Obstructive Pulmonary Disease (COPD) GASTROINTESTINAL: Negative Gastrointestinal Disorders, Hepatitis or Colorectal Cancer GENITOURINARY: Negative Genitourinary Disorders, Renal Disease or Prostate Cancer REPRODUCTIVE: Positive Previous Pregnancies and Syphilis (arpil 2021, treat october 2021.); Negative Breast Cancer, Endometriosis, Pelvic Inflammatory Disease, Testicular Cancer or Uterine Prolapse MUSCULOSKELETAL: Negative Musculoskeletal Disorders or Bone Cancer ENT: Negative Cataracts or Blind ENDOCRINE: Negative Endocrine Disorders, Diabetes Mellitus Type 1 or Diabetes Mellitus Type 2 HEMATOLOGIC: Negative Blood Disorders OTHER HISTORY: Negative Hospitalization, Autoimmune Disease, Down Syndrome, Developmental Delay, Shingles, Falls, Blood Transfusions, Blood Transfusion Reaction, Anesthesia Reactions, Organ Transplant, Chemotherapy, Radiation Therapy, Hyperbaric Therapy, MRSA, VRSA, Vancomycin-Resistant Enterococci, Human Immunodeficiency Virus (HIV), Chicken Pox, Measles, Mumps, Rubella (Khmer Measles), Clostridium Difficile, Cancer, Breast Cancer, Cervical Cancer, Colorectal Cancer, Lung Cancer, Ovarian Cancer, Prostate Cancer or Testicular Cancer Family History FAMILY HISTORY: Negative Family Psychiatric Problems, Family Respiratory Disorders, Family Cardiac Disorders, Family Gastrointestinal Problems, Family Cancer, Family Surgery or Family Anesthesia Reaction Surgical History SURGICAL: Negative Endocrine Surgery, Ear Surgery, Abdominal Surgery, Nephrectomy, Joint Replacement, Neurologic Surgery, Section or Organ Transplant Social History SMOKING STATUS: Never smoker SECOND HAND EXPOSURE: Yes (fob smokes around mother.) ED Exam General Limitations: Present no limitations General appearance: Present alert, in no apparent distress and other (Patient is awake alert oriented not in distress nontoxic looking well-hydrated well-nourished) Head Head exam: Present atraumatic, normocephalic and normal inspection Eye Eye exam: Present normal appearance, PERRL and EOMI ENT ENT exam: Present normal exam, normal oropharynx, mucous membranes moist and other (HEENT exam is normal and unremarkable) Neck Neck exam: Present normal inspection, full ROM and trachea midline; Absent tenderness, meningismus, lymphadenopathy or thyromegaly Chest Chest inspection: Present normal inspection and symmetric chest wall rise; Absent tenderness Respiratory Respiratory exam: Present normal lung sounds bilaterally; Absent respiratory distress, wheezes, stridor, accessory muscle use or prolonged expiratory phase Cardiovascular Cardiovascular exam: Present regular rate, normal rhythm and normal heart sounds; Absent bradycardia, tachycardia, irregular rhythm, systolic murmur or diastolic murmur Abdominal Exam Abdominal exam: Present soft and normal bowel sounds; Absent distention, tenderness, guarding, rebound, rigidity, diminished bowel sounds, hyperactive bowel sounds, hypoactive bowel sounds or organomegaly Extremities Exam Extremities exam: Present normal inspection and full ROM Back Exam Back exam: Present normal inspection and full ROM Neurological Exam Neurological exam: Present alert, oriented X3, CN II-XII intact, normal gait and reflexes normal; Absent motor sensory deficit Psychiatric Psychiatric exam: Present normal affect and normal mood Skin Skin exam: Present warm, dry, intact, normal color and other (Noted 1 cm lump on the lower inner lip tender to touch redness mild swelling no fluctuance not indurated suggestive of abscess but no cellulitis) Course Quality Measures none Orders Category Date Time Status cefTRIAXone [Rocephin] 1,000 mg Med 03/28/25 19:02 Discontinued Lidocaine 1% 20 ml [Xylocaine 1% 20 ML] 2.1 ml IM X1 Vital Signs Vital signs: Patient vital signs stable oxygen saturation is now Skin / Abscess / Foreign Body MDM Narrative MDM Narrative:: This is a case of 24-year-old female with no medical history came into the emergency room due to painful lump on the lower inner lip for 3 days worsening of the symptoms this patient decided to sought consult here in the emergency room physical examination patient is awake alert oriented not in distress nontoxic looking well-hydrated well-nourished noted a 1 cm lump on the lower inner lip tender to touch redness no fluctuance not indurated suggestive of abscess but no cellulitis at the time of exam there is no indication to perform incision and drainage patient was given ceftriaxone IM here in the emergency room and discharged with Bactrim and ibuprofen for pain she was advised to follow-up with PCP in 2 days for reevaluation and return in the emergency room in 2 days for reevaluation and possible incision and drainage worsening of symptoms or any emergent concern return precaution in the emergency room was advised Patient was discharged with comfortable condition walking with stable gait. Patient verbalized no further complains explained diagnosis and answered patient question. Patient is comfortable with the proposed management plan including the need to follow up with his/her primary care physician and any specialist if applicable Discussed patient for any urgent condition or worsening sx, He/She needed to go to emergency room immediately or call 911. Patient acknowledge the responsibility to follow up as instructed and to monitor her/his symptoms. For any persistence of the symptoms for more than 3-5 days return precaution advised. Discussed the result of the test and was given printed discharge instruction Patient data External records reviewed:: [facility] previous records Clinical information provided by:: patient Social determinants that could affect healthcare access:: none Patient has the following chronic illnesses:: None How is presenting disease/condition affected by chronic disease/condition?: no chronic disease Evaluation data The following diagnostics were reviewed and interpreted by me:: other (specify) (None) Lab and/or radiology exams considered but not ordered:: None Interpretation Summary: None Medications / Prescriptions Medications or Prescriptions considered but not ordered:: Given Medication administrations:: Medication Administration History Discontinued Medications Ceftriaxone Sodium 1,000 mg/ (Lidocaine HCl 2.1 ml) 0 mg IM X1 ONE Stop: 03/28/25 19:03 Given Consultations Consultation(s) initiated? (list below): No Diagnosis Skin/Abscess Differential Diagnosis: abscess of skin or subcutaneous tissue and cellulitis Most likely diagnosis given after review of the tests above:: Abscess Admission Indicated Admission indicated?: not indicated Explain why admission is indicated or not indicated:: Not indicate Admission Request Was there a request for admission?: No Disposition Plan Disposition Plan: Discharge Discharge Attestation Discharge Attestation: The patient and all family members were given an opportunity to ask questions and understood the discharge instructions. Discharge instructions specifically effects, indications for sooner follow up or return to the emergency department, and the expected course of current diagnosis. Patient condition: Stable Discharge Plan Plan Patient Disposition: HOME (Self Care) Patient condition on transfer: Stable Prescriptions/Referrals Prescriptions/Med Rec: New ibuprofen 800 mg tablet 800 mg PO Q8H PRN (Reason: pain) Qty: 20 0RF sulfamethoxazole-trimethoprim [Bactrim DS] 800-160 mg tablet 1 tab PO Q12H Qty: 20 0RF No Action ibuprofen 800 mg tablet 800 mg PO Q8H PRN (Reason: pain) Qty: 30 0RF Problem List Clinical Impression: Abscess of lip Patient/Caregiver Discharge Instructions Education Materials: ED Abscess Antibiotic ... Additional Instructions: Follow-up with your primary care physician in 2 days for reevaluation worsening symptoms or any emergent concern call 911 or go to the nearest emergency room return in the emergency room in 2 days for reevaluation and possible incision and drainage take your medication as directed finish the course of antibiotic keep the area clean and dry Print Language: Lebanese Stand Alone Forms: Justina Award Info., Patient Portal Info Letter PA/WIRE SPOOLER Supervising Physician PA/HOWARD Supervising Physician: Dr jurado
[2025-03-28] MEDS: cefTRIAXone 1,000 MG, LIDOCAINE 1% 20 ML 2.1 ML IM (19:30)
== END 2025-03-28 19:35 | disposition home or self-care (01) ==
LOC: SERX 19:41
PROVIDERS: Emergency Provider Emergency Medicine
DX: K13.0 Diseases of lips (principal)
CPT/HCPCS: 96372; 99282; J0696; J3490